=== PATIENT | male | born 2000 | race Caucasian/White ===

== ENCOUNTER 2020-04-20 21:48 | Emergency (ER) | payer BC, OTHER, SELFPAY ==
[2020-04-20 21:47] VITALS: BP 138/91; PULSE 116; RESP 20; TEMP 36.7; O2SAT 99; BMI 23.0
[2020-04-20 22:00] VITALS: BP 135/90; PULSE 108; RESP 18; O2SAT 99
--- NOTE | 2020-04-20 22:01 | HMH.EDOD ---
ED Disposition Clinical Impression: Poisoning by opiate or related narcotic, SIRS (systemic inflammatory response syndrome) Contusion of face Qualifiers: Encounter type: initial encounter Qualified Code(s): S00.83XA - Contusion of other part of head, initial encounter Sinusitis Qualifiers: Sinusitis location: maxillary Chronicity: subacute Qualified Code(s): J01.00 - Acute maxillary sinusitis, unspecified Disposition: Home, Self-Care Condition on Discharge: Good Instructions: DI for Drug Overdose in Adults Additional Instructions: call pcp for follow up and see ent Prescriptions: levoFLOXacin [Levaquin 500mg tab] 500 mg PO DAILY #7 tab Transmission Status: Pending to [facility] Referrals: PCP,No [Primary Care Provider] - James Maki MD [Staff Physician] - - Critical Care Critical Care Time: No Attestation: On 04/20/20, the high probability of a clinically significant, sudden or life threatening deterioration of the following system(s) required my full and direct attention, intervention and personal management. The time I documented below is in addition to time spent performing reported procedures but includes the following listed in this critical care notation. Medical Decision Making - Medical Records Medical records reviewed: Yes: I reviewed the patient's medical records. - Srinivas Inquiry Pt receiving controlled substance: No Vital Signs: 04/20/20 21:47 04/20/20 22:00 04/20/20 22:30 Temperature 98.0 F Temperature Source Oral Pulse Rate [Left Radial] 116 H 108 H 98 H Respiratory Rate 20 18 17 Blood Pressure [Right Arm] 138/91 H 135/90 131/89 Blood Pressure Mean [Right Arm] 106 105 103 Blood Pressure Source [Right Arm] Automatic Cuff Automatic Cuff Automatic Cuff Blood Pressure Position [Right Arm] Supine Supine Supine 02 Sat by Pulse Oximetry 99 99 99 Oxygen Delivery Method Room Air Room Air Room Air - Lab Data Lab results reviewed: Yes: I reviewed the patient's lab results. Lab Results 04/20/20 22:15: Urine Color Yellow, Urine Appearance Clear, Urine pH 6.0, Ur Specific [place] 1.025, Urine Protein Negative, Urine Glucose (UA) 3+, Urine Ketones Negative, Urine Blood Negative, Urine Nitrate Negative, Urine Bilirubin Negative, Urine Urobilinogen 0.2, Ur Leukocyte Esterase Negative, Urine WBC 3-5, Ur Squamous Epith Cells Occasional, Urine Bacteria 1+, Urine Mucus Trace 04/20/20 22:15: Urine Opiates Screen Negative, Urine Methadone Screen Negative, Ur Barbituates Screen Negative, Ur Phencyclidine Scrn Negative, Ur Amphetamines Screen Negative, U Benzodiazepines Scrn Negative, Urine Cocaine Screen Negative, U Marijuana (THC) Screen Positive H 04/20/20 22:15: WBC 20.2 H*, RBC 5.13, Hgb 16.6, Hct 48.5, MCV 94.5 H, MCH 32.3 H, MCHC 34.2, RDW 14.2, Plt Count 264, MPV 7.9, Neut % (Auto) 88.3 H, Lymph % (Auto) 6.5 L, [place] % (Auto) 4.2, Eos % (Auto) 0.8, Baso % (Auto) 0.3, Neut # (Auto) 17.8 H, Lymph # (Auto) 1.3, [place] # (Auto) 0.8, Eos # (Auto) 0.2, Baso # (Auto) 0.1, Total Counted 100, Neutrophils % (Manual) 92 H, Lymphocytes % (Manual) 7 L, Monocytes % (Manual) 1 L, Platelet Estimate Normal, RBC Morphology Normal 04/20/20 22:35: Sodium 138, Potassium 4.5, Chloride 101, Carbon Dioxide 31 H, Anion Gap 10.5, BUN 19, Creatinine 0.90, Estimated Creat Clear 142, Estimated GFR 107, Est GFR ( Amer) 129, Glucose 184 H, Calcium 8.8, Total Bilirubin 0.2, AST 44, ALT 36, Alkaline Phosphatase 62, Total Protein 7.1, Albumin 4.4, Globulin 2.7, Albumin/Globulin Ratio 1.6 04/20/20 22:35: Plasma/Serum Alcohol < 10 Result diagrams: 04/20/20 22:15 04/20/20 22:35 Orders (Tests/Meds): ED MEDICATIONS Generic Name Dose Route Start Last Admin Trade Name Freq PRN Reason Stop Dose Admin Sodium Chloride 1,000 mls @ 999 mls/hr 04/20/20 22:00 04/20/20 22:05 Sod Chlor 0.9% 1000ml Bag IV 04/20/20 23:00 999 mls/hr .Q1H1M YASMANI Administration ORDERS Category Date Time Status CT cervical sp
--- NOTE | 2020-04-20 22:03 | XR_ITS ---
PROCEDURE: XR CHEST PORTABLE CLINICAL HISTORY: chest pain COMPARISON: No exams were available for comparison FINDINGS: The cardiomediastinal silhouette and pulmonary vascularity are within normal limits. The lungs are clear without infiltrates, suspicious nodules, or pleural effusions. No acute bony abnormalities. IMPRESSION: No acute findings. Dictated by: Daniele Choi MD 04/21/2020 05:46 Daniele Choi MD in [place] 04/21/2020 05:46
[2020-04-20 22:23] LABS: Microscopic, Urine URINE MICROSCOPIC (MICROSCOPIC)
[2020-04-20 22:24] LABS: Appearance,Urine CLEAR (Clear); Bilirubin,Urine Negative (Negative); Blood, Urine Negative (Negative); Color,Urine YELLOW (Yellow); Glucose,Urine (UA) 3+ (Negative); Ketones,Urine Negative (Negative); Leukocyte Esterase,Urine Negative (Negative); Nitrate,Urine Negative (Negative); Protein,Urine Negative (Negative); Specific Gravity, Urine 1.025 (1.005-1.030); Urobilinogen,Urine 0.2 EU/dl (0.2)
[2020-04-20 22:26] LABS: Basophils # 0.1 K/mm3 (0-0.2); Basophils % 0.3 % (0.1-2.0); Eosinophils # 0.2 K/mm3 (0.0-0.4); Eosinophils % 0.8 % (0.1-12.0); Hematocrit 48.5 % (42.0-52.0); Hemoglobin 16.6 g/dL (14.1-18.0); Lymphocytes # 1.3 K/mm3 (0.7-4.5); Lymphocytes % 6.5 % (10-50); Mean Corpuscular HGB Conc 34.2 g/dL (31.8-35.4); Mean Corpuscular Hemoglobin 32.3 pg (27.0-31.2); Mean Corpuscular Volume 94.5 fl (80-94); Mean Platelet Volume 7.9 fl (7.4-10.4); Monocytes # 0.8 K/mm3 (0.1-1.0); Monocytes % 4.2 % (1.7-9.3); Neutrophils # 17.8 K/mm3 (1.8-7.8); Neutrophils % 88.3 % (37.0-80.0); Platelet Count 264 K/mm3 (142-424); Red Blood Count 5.13 M/mm3 (4.60-6.20); Red Cell Distribution Width 14.2 % (11.5-17.5); White Blood Count 20.2 K/mm3 (4.8-10.8)
[2020-04-20 22:30] VITALS: BP 131/89; PULSE 98; RESP 17; O2SAT 99
[2020-04-20 22:34] LABS: Benzodiazepines Screen,Urine Negative ng/ml (<200)
[2020-04-20 22:35] LABS: Amphetamine/Metha Screen,Urine Negative ng/ml (<1000)
[2020-04-20 22:36] LABS: Barbiturates Screen,Urine Negative ng/ml (<200); Cannabinoid Screen,Urine Positive ng/ml (<50)
[2020-04-20 22:37] LABS: Cocaine Screen,Urine Negative ng/ml (<300); Methadone Screen,Urine Negative ng/ml (<300)
--- NOTE | 2020-04-20 22:37 | CT_ITS ---
PROCEDURE: CT CERVICAL SPINE WO CON CLINICAL INDICATION: possible injury Pain and bruising COMPARISON: No exams were available for comparison TECHNIQUE: Axial images obtained with sagittal and coronal reformats. All CT scans at the facility use one or more dose reduction, viz: automated exposure control, ma/kV adjustment per patient size (including targeted exams where dose is matched to indication, i.e. head), or iterative reconstruction technique. Axial spiral CT scanning performed of the cervical spine beginning at the base of the skull and continuing to the upper T-spine. 3-D multiplanar reconstruction with 3-D manipulation of volumetric data set in image rendering was completed by the radiologist and/or technologist with the supervision of the radiologist on independent workstation. FINDINGS: No fracture nor subluxation is evident. Normal prevertebral soft tissues. Facets, neural foramen and vertebral bodies intact and unremarkable. Normal C1/C2 relationships. Apices of lungs are clear with no acute findings.There is straightening/reversal of the normal lordosis which may be due to patient positioning or muscle spasm. There is mild prominence of the palatine tonsils and adenoids. Scattered mildly prominent lymph nodes are present in the neck. Lung apices are clear IMPRESSION: 1. No acute fracture. 2. Straightening of the cervical lordosis. 3. Mild cervical adenopathy and prominent tonsils and adenoids. Consider follow-up with contrast to confirm stability. Dictated by: Daniele Choi MD 04/21/2020 05:35 Daniele Choi MD in [place] 04/21/2020 05:35
--- NOTE | 2020-04-20 22:37 | CT_ITS ---
PROCEDURE: CT FACIAL BONES WO CON CLINICAL HISTORY: possible injury Bruises and swelling COMPARISON: No exams were available for comparison TECHNIQUE: Axial images obtained with sagittal and coronal reformats. All CT scans at the facility use one or more dose reduction, viz: automated exposure control, ma/kV adjustment per patient size (including targeted exams where dose is matched to indication, i.e. head), or iterative reconstruction technique. FINDINGS: Bones: Anterior nasal bone fracture with minimal depression of the nasal spine. This may be chronic Extracranial soft tissues: Unremarkable. Sinuses: Mucosal thickening involves the maxillary sinus on the right. There is a small retention cyst in the left sphenoid sinus posteriorly. There is mild leftward nasal septal deviation and minimally codes the thickening of the left maxillary sinus inferiorly. There is prominence of the adenoids and palatine tonsils. Orbits: Unremarkable. Other: No other pertinent findings. IMPRESSION: 1. Minimally depressed nasal bone fracture anteriorly which may be chronic. 2. Mild sinus disease 3. No definite acute finding Dictated by: Daniele Choi MD 04/21/2020 05:41 Daniele Choi MD in [place] 04/21/2020 05:41
--- NOTE | 2020-04-20 22:37 | CT_ITS ---
PROCEDURE: CT HEAD/BRAIN WO CON CLINICAL INDICATION: possible injury Pain and bruising COMPARISON: No exams were available for comparison TECHNIQUE: Axial images obtained. All CT scans at the facility use one or more dose reduction, viz: automated exposure control, ma/kV adjustment per patient size (including targeted exams where dose is matched to indication, i.e. head), or iterative reconstruction technique. FINDINGS: No midline shift, mass effect, intracranial hemorrhage, hydrocephalus, or extra-axial fluid collection is evident. The calvarium has an unremarkable appearance. No mastoid effusion. Mild mucosal thickening of the sphenoid sinus on the left suggesting small retention cyst IMPRESSION: No acute intracranial finding Dictated by: Daniele Choi MD 04/21/2020 05:30 Daniele Choi MD in [place] 04/21/2020 05:30
[2020-04-20 22:38] LABS: Opiate Screen,Urine Negative ng/ml (<300)
[2020-04-20 22:39] LABS: MANUAL DIFFERENTIAL MANUAL DIFFERENTIAL (MANUAL DIFF); Phencyclidine Screen,Urine Negative ng/ml (<25)
[2020-04-20 22:50] LABS: Bacteria,Urine 1+ /lpf; Mucus,Urine Trace /lpf; Squamous Epithelial Cell,Urine Occasional #/hpf (0-5)
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
[2020-04-20 22:55] LABS: Chloride 101 mmol/L (98-107); Potassium 4.5 mmoL/L (3.5-5.1); Sodium 138 mmol/L (136-145)
[2020-04-20 22:57] LABS: Alanine Aminotransferase 36 U/L (12-78); Alkaline Phosphatase 62 U/L (38-126); Aspartate Amino Transferase 44 U/L (17-59); Bilirubin,Total 0.2 mg/dl (0.2-1.3); Blood Urea Nitrogen 19 mg/dl (9-20); Creatinine Clearance Estimated 142 mL/min (50-200); Estimated Glomerular Filt Rate 107 ml/min (>60); GFR (African American) 129 ML/MIN (>60)
[2020-04-20 22:58] LABS: Albumin Level 4.4 g/dl (3.5-5.0); Albumin/Globulin Ratio 1.6 (1.1-1.8); Anion Gap 10.5 mEq/L (5-15); Calcium 8.8 mg/dl (8.4-10.2); Carbon Dioxide 31 mmol/L (22.0-30.0); Globulin 2.7 g/dL (1.3-3.2); Glucose 184 mg/dl (74-100); Total Protein,Serum 7.1 g/dl (6.3-8.2)
[2020-04-20 23:05] LABS: Lymphocytes % 7 % (10-50); Monocytes % 1 % (2-9); Neutrophils % 92 % (42-76); Total Cells Counted 100
[2020-04-20 23:06] LABS: Platelet Estimate Normal; RBC Morphology Normal
[2020-04-20 23:11] LABS: Ethyl Alcohol < 10 mg/dl (0-10)
[2020-04-20 23:52] VITALS: BP 143/82; PULSE 100; RESP 18; TEMP 36.6; O2SAT 99
== END 2020-04-20 23:57 | disposition home or self-care (01) ==
PROVIDERS: Emergency Provider Emergency Medicine
DX: T40.1X1A Poisoning by heroin, accidental (unintentional), initial encounter (principal); R65.10 Systemic inflammatory response syndrome (SIRS) of non-infectious origin without acute organ dysfunction; S00.83XA Contusion of other part of head, initial encounter; J01.00 Acute maxillary sinusitis, unspecified
CPT/HCPCS: 70450; 70486; 71045; 72125; 80053; 80305; 81001; 85007; 85025; 96365; 99284

== ENCOUNTER 2021-05-28 15:06 | Emergency (ER) | payer BC, OTHER, SELFPAY ==
[2021-05-28 15:27] VITALS: BP 163/104; PULSE 106; RESP 18; TEMP 37.1; O2SAT 96; BMI 22.9
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
[2021-05-28 16:14] VITALS: BP 163/104; PULSE 106; RESP 18; TEMP 37.1; O2SAT 96
== END 2021-05-28 16:17 | disposition home or self-care (01) ==
PROVIDERS: Emergency Provider Emergency Medicine
DX: Z02.83 Encounter for blood-alcohol and blood-drug test (principal); V43.52XA Car driver injured in collision with other type car in traffic accident, initial encounter; Y92.488 Other paved roadways as the place of occurrence of the external cause; F17.290 Nicotine dependence, other tobacco product, uncomplicated
CPT/HCPCS: 99282

== ENCOUNTER 2022-03-12 11:09 | Emergency (ER) | payer BC, OTHER, SELFPAY ==
[2022-03-12] VITALS (10 sets, daily range): BP systolic 109–142; BP diastolic 74–101; PULSE 92–188; RESP 16–36; TEMP 30.5–36.7; O2SAT 89–99; BMI 23.7
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
--- NOTE | 2022-03-12 11:29 | ECG_ITS ---
APPROVED REPORT Exam: Resting ECG HR:153 bpm ECG Measurements Heart Rate 153 AXES QRSd 96 QRS 95 QT 298 T 12 QTc 385 Conclusion ATRIAL FIBRILLATION WITH RAPID VENTRICULAR RESPONSE BORDERLINE RIGHT AXIS DEVIATION [QRS AXIS > 90] NONSPECIFIC T-WAVE ABNORMALITY CRITICAL TEST RESULT UNCONFIRMED REPORT Electronically signed by : Ed Rosa MD 03/17/2022 16:06:00
--- NOTE | 2022-03-12 11:30 | PC.NURSE ---
pt place on [facility]
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
[2022-03-12 11:48] LABS: Basophils # 0.3 K/mm3 (0-0.2); Basophils % 0.7 % (0.1-2.0); Eosinophils % 0.1 % (0.1-12.0); Hematocrit 54.2 % (42.0-52.0); Hemoglobin 17.4 g/dL (14.1-18.0); Lymphocytes % 5.8 % (10-50); Mean Corpuscular HGB Conc 32.2 g/dL (31.8-35.4); Mean Corpuscular Hemoglobin 31.2 pg (27.0-31.2); Mean Corpuscular Volume 96.9 fl (80-94); Mean Platelet Volume 7.7 fl (7.4-10.4); Monocytes # 2.4 K/mm3 (0.1-1.0); Monocytes % 6.8 % (1.7-9.3); Neutrophils # 30.3 K/mm3 (1.8-7.8); Neutrophils % 86.7 % (37.0-80.0); Platelet Count 466 K/mm3 (142-424); Red Cell Distribution Width 14.5 % (11.5-17.5)
[2022-03-12 11:49] LABS: MANUAL DIFFERENTIAL MANUAL DIFFERENTIAL (MANUAL DIFF)
[2022-03-12 11:51] LABS: Chloride 97 mmol/L (98-107); Potassium 4.8 mmoL/L (3.5-5.1); Sodium 147 mmol/L (136-145)
[2022-03-12 11:53] LABS: Alanine Aminotransferase 43 U/L (12-78); Alkaline Phosphatase 150 U/L (38-126); Anion Gap 41.8 mEq/L (5-15); Aspartate Amino Transferase 56 U/L (17-59); Blood Urea Nitrogen 19 mg/dl (9-20); Carbon Dioxide 13 mmol/L (22.0-30.0); Creatine Kinase 594 U/L (55-170); Creatinine Clearance Estimated 90 mL/min (50-200); Estimated Glomerular Filt Rate 63 ml/min (>60); GFR (African American) 76 ML/MIN (>60)
[2022-03-12 11:54] LABS: Albumin Level 5.6 g/dl (3.5-5.0); Albumin/Globulin Ratio 1.7 (1.1-1.8); Globulin 3.3 g/dL (1.3-3.2); Glucose 216 mg/dl (74-100); Magnesium 3.7 mg/dl (1.6-2.3); Total Protein,Serum 8.9 g/dl (6.3-8.2)
[2022-03-12 11:55] LABS: Acetaminophen < 10 ug/ml (10-30); Bilirubin,Total < 0.1 mg/dl (0.2-1.3); Salicylate < 1.0 mg/dL (2.0-20.0)
--- NOTE | 2022-03-12 12:00 | PC.NURSE ---
Myra from lab called a critical Lactic of 17.6 MD made aware.
[2022-03-12 12:02] LABS: Lactic Acid 17.6 mmol/L (0.7-2.1)
[2022-03-12 12:17] LABS: Troponin I < 0.01 ng/ml (0.00-0.034)
[2022-03-12 12:18] LABS: Ethyl Alcohol < 10 mg/dl (0-10)
[2022-03-12 12:26] LABS: Thyroid Stimulating Hormone 1.52 uIU/mL (0.465-4.68)
[2022-03-12 12:35] LABS: Lymphocytes % 18 % (10-50); Monocytes % 1 % (2-9); Neutrophils % 78 % (42-76); Platelet Estimate Slight Increase; RBC Morphology Normal; Total Cells Counted 100
--- NOTE | 2022-03-12 13:01 | PC.NURSE ---
Pt sitting up in bed, taking small sips of water, mother at bedside.
[2022-03-12 13:17] LABS: Coronavirus 19, PCR Not Detected (NotDetected); Influenza A, PCR Not Detected (NotDetected); Influenza B, PCR Not Detected (NotDetected)
--- NOTE | 2022-03-12 13:33 | PC.NURSE ---
Paging Dr Lux, who is on for service, at this time.
--- NOTE | 2022-03-12 13:33 | EXP.PHA.CONS ---
Pharmacy Consult Date: 03/12/22 Time: 13:33 Referring provider: DR JACKSON Reason for Consult:: VANCOMYCIN DOSING CONSULT Allergies Allergy/AdvReac Type Severity Reaction Status Date / Time No Known Allergies Allergy Verified 04/13/21 13:34 Home Medications Medication Instructions Recorded Confirmed Type fluoxetine 20 mg capsule (Prozac) 20 mg PO DAILY #30 caps 04/13/21 04/13/21 Rx New Prescriptions to Start Prescriptions: Height: 1.8 m Weight: 77.111 kg Laboratory Results:: Laboratory Results - last 24 hr 03/12/22 11:35: Total Creatine Kinase 594 H*, Troponin I < 0.01, TSH 1.52, Salicylates < 1.0 L, Acetaminophen < 10 L 03/12/22 11:35: Lactate 17.6 H 03/12/22 11:35: WBC 35.0 H*, RBC 5.60, Hgb 17.4, Hct 54.2 H, MCV 96.9 H, MCH 31.2, MCHC 32.2, RDW 14.5, Plt Count 466 H, MPV 7.7, Neut % (Auto) 86.7 H, Lymph % (Auto) 5.8 L, [place] % (Auto) 6.8, Eos % (Auto) 0.1, Baso % (Auto) 0.7, Neut # (Auto) 30.3 H, Lymph # (Auto) 2.0, [place] # (Auto) 2.4 H, Eos # (Auto) 0.0, Baso # (Auto) 0.3 H, Total Counted 100, Neutrophils % (Manual) 78 H, Band Neutrophils % 3.0, Lymphocytes % (Manual) 18, Monocytes % (Manual) 1 L, Platelet Estimate Slight increase, RBC Morphology Normal 03/12/22 11:35: Sodium 147 H, Potassium 4.8, Chloride 97 L, Carbon Dioxide 13 L, Anion Gap 41.8 H, BUN 19, Creatinine 1.40 H, Estimated Creat Clear 90, Estimated GFR 63, Est GFR ( Amer) 76, Glucose 216 H, Calcium 9.0, Magnesium 3.7 H, Total Bilirubin < 0.1 L, AST 56, ALT 43, Alkaline Phosphatase 150 H, Total Protein 8.9 H D, Albumin 5.6 H, Globulin 3.3 H, Albumin/Globulin Ratio 1.7 03/12/22 11:35: Plasma/Serum Alcohol < 10 Assessment and Plan Assessment and plan (1) SIRS (systemic inflammatory response syndrome): Status: Acute Category: Medical Code(s): R65.10 - Systemic inflammatory response syndrome (SIRS) of non-infectious origin without acute organ dysfunction (2) Sinusitis: Status: Acute Qualifiers: Chronicity: subacute Sinusitis location: maxillary Qualified Code(s): J01.00 - Acute maxillary sinusitis, unspecified Category: Medical Code(s): J32.9 - Chronic sinusitis, unspecified Plan Pharmacokinetic dosing service Objective: Age: 21 yo Serum creatinine: 1.4 mg/dL Height: 71.0 Inches Weight (kg): 77.111 Assessment: IBW (kg): 75.30 Dosing wt(kg): 77.111 Estimated Creatinine clearance (ml/min): 87.4 CRCL method: Cockcroft and Gault using ibw(default). Drug selected: Vancomycin Vd (liters): 57.8 (factor used: 0.75 L/kg) [place] (hr-1): 0.077 Half life (hrs): 9.00 CLvanco=?? 4.451 L/hr Recommended dose: 1250 mg Interval: 12 hrs Infusion time (hrs): 2.0 Predicted peak (mcg/mL): 33.2 Predicted trough (mcg/mL): 15.37 Total body weight is being used for vancomycin dosing. Recommendations: Give Vancomycin 1250 mg q 12 hrs with an expected Cpeak of 33.2 mcg/ml and an expected Ctrough of 15.37 mcg/ml AUC 0-24 /NATALIE Data: NATALIE 0.5 mcg/mL:?? AUC/NATALIE:? 1123.3 NATALIE 1.0 mcg/mL:?? AUC/NATALIE:? 561.7 --------- NATALIE 1.5 mcg/mL:?? AUC/NATALIE:? 374.4 NATALIE 2.0 mcg/mL:?? AUC/NATALIE:? 280.8 Thank you for the consult
--- NOTE | 2022-03-12 13:35 | PC.NURSE ---
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
[2022-03-12 13:46] LABS: Benzodiazepines Screen,Urine Negative ng/ml (<200)
[2022-03-12 13:47] LABS: Barbiturates Screen,Urine Negative ng/ml (<200); Cannabinoid Screen,Urine Positive ng/ml (<50)
[2022-03-12 13:48] LABS: Cocaine Screen,Urine Negative ng/ml (<300)
[2022-03-12 13:49] LABS: Methadone Screen,Urine Negative ng/ml (<300)
[2022-03-12 13:50] LABS: Phencyclidine Screen,Urine Negative ng/ml (<25)
[2022-03-12 13:51] LABS: Opiate Screen,Urine Positive ng/ml (<300)
[2022-03-12 14:29] LABS: Chloride 101 mmol/L (98-107); Sodium 140 mmol/L (136-145)
[2022-03-12 14:32] LABS: Alanine Aminotransferase 32 U/L (12-78); Albumin Level 4.3 g/dl (3.5-5.0); Albumin/Globulin Ratio 1.7 (1.1-1.8); Alkaline Phosphatase 131 U/L (38-126); Aspartate Amino Transferase 45 U/L (17-59); Blood Urea Nitrogen 21 mg/dl (9-20); Calcium 8.1 mg/dl (8.4-10.2); Carbon Dioxide 27 mmol/L (22.0-30.0); Creatinine Clearance Estimated 139 mL/min (50-200); Estimated Glomerular Filt Rate 105 ml/min (>60); GFR (African American) 127 ML/MIN (>60); Globulin 2.5 g/dL (1.3-3.2); Glucose 90 mg/dl (74-100); Total Protein,Serum 6.8 g/dl (6.3-8.2)
[2022-03-12 14:36] LABS: Basophils # 0.1 K/mm3 (0-0.2); Basophils % 0.4 % (0.1-2.0); Lymphocytes # 1.3 K/mm3 (0.7-4.5); Lymphocytes % 4.8 % (10-50); Mean Corpuscular HGB Conc 34.2 g/dL (31.8-35.4); Mean Corpuscular Hemoglobin 31.1 pg (27.0-31.2); Mean Platelet Volume 7.5 fl (7.4-10.4); Monocytes # 1.8 K/mm3 (0.1-1.0); Monocytes % 6.4 % (1.7-9.3); Neutrophils # 24.1 K/mm3 (1.8-7.8); Neutrophils % 88.3 % (37.0-80.0); Platelet Count 359 K/mm3 (142-424); Red Blood Count 4.83 M/mm3 (4.60-6.20); Red Cell Distribution Width 14.6 % (11.5-17.5); White Blood Count 27.3 K/mm3 (4.8-10.8)
[2022-03-12 14:56] LABS: Lactic Acid 2.9 mmol/L (0.7-2.1)
[2022-03-12 14:57] LABS: Bilirubin,Total < 0.1 mg/dl (0.2-1.3)
--- NOTE | 2022-03-12 15:13 | PC.NURSE ---
adjusted BP cuff and cycled pressure
--- NOTE | 2022-03-12 15:16 | PC.NURSE ---
PT LYING IN BED, MOTHER AT BED SIDE, PT WANTED A GLASS OF WATER, GOT HIM A GLASS OF WATER AND PT STATED THAT HE WAS READY TO GO HOME.
--- NOTE | 2022-03-12 15:30 | PC.NURSE ---
Pt refused to stay for infusion of 2nd antibiotic infusion. made aware.
[2022-03-12 15:40] LABS: Reflex Lactic Add Lactic Reflex
[2022-03-12 15:52] LABS: Troponin I 0.02 ng/ml (0.00-0.034)
[2022-03-19 19:21] LABS: Amphetamine Positive; Amphetamines Positive
[2022-03-19 19:22] LABS: Amphetamine (GC/MS) 2241; Methamphetamine Positive; Methamphetamine (GC/MS) >3000
== END 2022-03-12 15:30 | disposition home or self-care (01) ==
PROVIDERS: Emergency Provider Emergency Medicine
DX: T40.2X1A Poisoning by other opioids, accidental (unintentional), initial encounter (principal); R41.82 Altered mental status, unspecified; H93.293 Other abnormal auditory perceptions, bilateral; E87.1 Hypo-osmolality and hyponatremia; E86.0 Dehydration; E87.2 Acidosis; Z20.822 Contact with and (suspected) exposure to COVID-19; N17.9 Acute kidney failure, unspecified
CPT/HCPCS: 70450; 71045; 72125; 73562; 80053; 80305; 80324; 80329; 82550; 83605; 83735; 84443; 84484; 85007; 85025; 87040; 93005; 96361; 96374; 96375; 99285; C9803; J2405; U0003; U0005